=== PATIENT | female | born 1955 | race Caucasian/White ===

== ENCOUNTER 2016-05-19 05:50 | Day surgery (SDC) | payer OTHER ==
[2016-05-19] VITALS (9 sets, daily range): BP systolic 118–140; BP diastolic 63–76; PULSE 73–86; RESP 14–22; O2SAT 75–98
[~2016-05-19] VITALS: Ht 175.3 cm; Wt 68.5 kg
[~2016-05-19 05:50] MED LIST: AMT25T PO; BIOT1CAP3 PO; CALC-78 PO; CARISPRODOL PO; DICL100G8 TP; ESOM40CA41 PO; ESZO2TAB38 PO; Lactated Ringer's 1,000 ML IV SCH; MELO7.5O PO; METH5TAB3 PO; MULT-1018 PO; NITR50CA4 PO; PRD5T PO; PREG100C PO; PROZ20 PO; ROB500 PO; SPIR50TA2 PO; TRAM-14 PO
[2016-05-19] MEDS ORDERED: Propofol 10,000 mCg/mL 20 mL Inj ONE (05:51)
[2016-05-19] MEDS ORDERED: Ondansetron 2 mg/mL 2 mL Inj ONE (05:51)
[2016-05-19] MEDS ORDERED: fentaNYL-PF 50 mCg/mL 2 mL Inj ONE (05:51)
[2016-05-19] MEDS ORDERED: Lidocaine PF 1% 30 mL Inj ONE (05:51)
[2016-05-19] MEDS ORDERED: Dexamethasone 4 mg/mL Inj ONE (05:51)
--- NOTE | 2016-05-19 07:17 | PCM.HPANE ---
Patient Data Date of Service: May 19, 2016 Surgeon Admitting Provider: Attending Provider:Destiny Brothers MD Primary Care Physician:Ignacio Pierre Other Provider:Nicole Stark Anesthesia Reason for Visit Right Sural Nerve Neuropathy Ht/WT & BMI Height (Feet): 5 Height (Inches): 9.00 Weight (Kilograms): 68.538 Body Mass Index 22.00 Allergies Coded Allergies: vancomycin (Verified Allergy, Severe, FACIAL SWELLING, RASH, 05/14/16) morphine (Verified Adverse Reaction, Severe, ITCHING, 05/14/16) Past Anesthesia History Anesthesia History: Denies:: Anesthesia Reactions, Malignant Hyperthermia Diabetes History Hx Diabetes?: No MRSA MRSA: No Medications Home Meds Incl Beta Petty: Yes Date Beta Petty Taken: May 18, 2016 Time Beta Petty Taken: 20:00 Reported Medications Diclofenac Gel (Voltaren Gel)100 Gm Tube1 Applic TP QID PRN PRN #1 TUBE 1% 05/14/16 Tramadol (Ultram)50 Mg Ycxwad17 Mg PO Q6H PRN Pain Ref 0 05/14/16 Spironolactone 50 Mg Qmagvg27 Mg PO BID #30 TABLET Ref 0 05/14/16 Fluoxetine (Prozac)20 Mg Riwwvpu07 Mg PO DAILY Ref 0 05/14/16 Prednisone (PredniSONE)5 Mg Tab5 Mg PO DAILY Ref 0 05/14/16 Esomeprazole Magnesium (Nexium)40 Mg Capsule.dr40-80 Mg PO DAILY Ref 0 05/14/16 Multivitamin (Multi Vitamin Daily)1 Each Tablet1 Each PO DAILY 30 Days Ref 0 05/14/16 Methocarbamol 500 Mg Bbhlya128 Mg PO TID 05/14/16 Methadone 5 Mg Tablet7.5 Mg PO BID 05/14/16 Meloxicam 7.5 Mg/5 Ml Oral.susp15 Mg PO DAILY 30 Days 05/14/16 Nitrofurantoin Macrocrystal (Macrodantin)50 Mg Wrtauje34 Mg PO DAILY Ref 0 05/14/16 Pregabalin (Lyrica)100 Mg Brbwnjf884 Mg PO TID 30 Days Ref 0 05/14/16 Eszopiclone (Lunesta)2 Mg Tablet2 Mg PO HS PRN For Sleep 05/14/16 [Carisprodol] No Conflict Xqckt760 Mg PO TID 3/31/17 Calcium Carbonate/Vitamin D3 (Calcium 500 + Vit D Caplet)1 Each Tablet1 Each PO BID 05/14/16 Biotin 1 Mg Capsule1 Mg PO DAILY 05/14/16 Amitriptyline 25 Mg Lyp54-14 Mg PO HS Ref 0 05/14/16 History History of ENT Problems?: Yes HEENT History: Positive for:: TMJ Hx of Heart Problems?: Yes Cardiovascular History: Denies:: Heart Murmur Hypertension Other Cardiac History: C/OF BRUISING EASILY Hx of Respiratory Problem?: No Respiratory History: Denies:: Use of C-PAP Machine Hx Neurologic Problems?: Yes Neurological History: Positive for:: Headaches Other Neurological Pertinent: RT SURAL NERVE NEUROPATHY=CURRENT PROBLEM HX MILAN-DANIEL VIRUS Hx of GI Problems?: Yes Gastrointestinal History: Positive for:: Gastroesphageal Reflux Other GI Pertinent History: HX IBS Hx of Problems?: Yes Genitourinary History: Positive for:: Urinary Tract Infection (HX CYSTOCELE, INTERSTITIAL CYSTITIS) Female Hx: Denies:: Currently (endo metrial ablation 93) Skin History: Denies:: History Skin Disorders? Pressure Ulcers Hx Musculoskeletal Problems?: Yes Musculoskeletal History: Positive for:: Fibromyalgia (FOLLOWED BY DR. HARDEN/ [facility]) Osteoarthritis Denies:: Back Injury (C/OF NECK PAIN) Hx of Psycho/Social Problems?: Yes Psycho Social History: Positive for:: Anxiety Hx Surgeries?: Yes (BLADDER SUSPENSION) Hx Any Other Health Problems?: Yes Other History: Denies:: Cancer Endocrine Disease (C/OF COLD INTOLERANCE) Hospitalization Thyroid Disease History Blood Transfusions: Denies:: Blood Transfusions Hx Diabetes: No Hx Alcohol Use: NoHave You Smoked inLast 12 mo: No Stop/Bang S-Snoring: Do You Snore Loudly: No T-Tired: feel tired, fatigued: Yes O-Obsered: Observed not breath: No P-Blood Pressure: treated: No B- Body Mass Index > 35 kg/m2: No A- Age over 50: Yes N- Neck Large Circumference: No G- Gender Male: No VIOLETA Total Score: 2 VIOELTA Risk Assessment: Low Risk, <3 Yes Risk Assessment Category Category 1A: Patient has history of documented sleep apnea, and HAS NOT received any narcotic, sedative or anesthesia administration during this stay. Category 1B: Patient has history of documented sleep apnea, and HAS received any narcotic , sedative or anesthesia administration during this stay Category 2: Patient has SUSPECTED Obstructive Sleep Apnea, and HAS received any narcotic , sedative or anesthesia administration during this stay. Category 3: Patient has SUSPECTED Obstructive Sleep Apnea and HAS NOT received narcotic, sedative or anesthesia administration during this stay. Category 4: Outpatient in Procedural Areas with known sleep apnea or who screen positive for High Risk via the STOP/BANG questionnaire. Exam Exam Vital Signs Vital Signs Date Time Temp Pulse Resp B/P Pulse Ox O2 Delivery O2 Flow Rate FiO2 05/19/16 06:29 36.3 78 14 118/72 98 Room Air General Appearance: Alert, Oriented X3, Cooperative, No Acute Distress HEENT/AIRWAY: MP 1 Lungs: Normal Air Movement Heart: Exam Unremarkable Plan Impression Patient chart reviewed, patient interviewed and anesthestic plan with risks, benefits, and alternatives discussed, and informed consent obtained. ASA Physical Status: ASA2 Mod Systemic Disease Anesthetic Plan: GA Bene/Risks/Altern/Consents: Yes HP Complete Prior to Induction: Yes Nitish Hensley MD May 19, 2016 07:03
[2016-05-19] MEDS ORDERED: Bupivacaine-MPF 0.25% 30 mL Inj INFILTRATE ONE (07:29)
[2016-05-19] MEDS ORDERED: Lactated Ringer's 500 ML IV PRN (07:48)
[2016-05-19] MEDS ORDERED: Lactated Ringer's 1,000 ML IV SCH (07:48)
[2016-05-19] MEDS ORDERED: Ondansetron 2 mg/mL 2 mL Inj IVPUSH PRN (07:50)
[2016-05-19] MEDS ORDERED: Atropine 0.4 mg/mL Inj IVPUSH PRN (07:50)
[2016-05-19] MEDS ORDERED: MetoCLOpramide 5 mg/mL 2 mL Inj IVPUSH PRN (07:50)
[2016-05-19] MEDS ORDERED: Labetalol 5 mg/mL 4 mL Inj IV PRN (07:50)
[2016-05-19] MEDS ORDERED: Dexamethasone 4 mg/mL Inj IVPUSH PRN (07:50)
[2016-05-19] MEDS ORDERED: EPHEDrine Sulfate 50 mg/mL Inj IVPUSH PRN (07:50)
[2016-05-19] MEDS ORDERED: Phenylephrine 10,000 mCg/mL Inj IVPUSH PRN (07:50)
[2016-05-19] MEDS ORDERED: HYDROmorphone 1 mg/mL Inj IVPUSH PRN (07:50)
[2016-05-19] MEDS ORDERED: fentaNYL-PF 50 mCg/mL 2 mL Inj IVPUSH PRN (07:50)
--- NOTE | 2016-05-19 08:40 | PCM.ANEP1 ---
Post Anesthesia Phase 1 PACU Phase 1 Assessment Date of Service: May 19, 2016 Vital Signs Vital Signs Date Time Temp Pulse Resp B/P Pulse Ox O2 Delivery O2 Flow Rate FiO2 05/19/16 06:29 36.3 78 14 118/72 98 Room Air Anesthetic Administered: GA Level of Alertness: Sleepy, easy to arouse GRANT's with Equal Strength: Yes Pain: No Nausea or Vomiting: No Oxygen Delivery: Nasal Cannula Lungs: Normal Air Movement Nitish Hensley MD May 19, 2016 08:40
[2016-05-19] MEDS ORDERED: oxyCODONE-Acetamin 5-325 mg Tablet PO PRN (09:00)
--- NOTE | 2016-05-19 09:12 | PCM.ANEP2 ---
Post Anesthesia Evaluation ASA/CMS Post Anesthesia Date of Service: May 19, 2016 VS in Patient's Normal Range?: Yes Resp Stable; Airway Patent?: Yes CV Function & Hydration Stable: Yes Mental Status Recovered?: Yes Pain control Satisfactory?: Yes N/V Control Satisfactory?: Yes Nitish Hensley MD May 19, 2016 09:12
--- NOTE | 2016-05-19 16:34 | OP ---
[address] [address] OPERATIVE REPORT PATIENT: JUSTIN MACIEL : 1955 MR#: [id number] ADMIT: 05/19/2016 JOB ID: [id number] DATE OF SURGERY: 05/19/2016 PREOPERATIVE DIAGNOSIS(ES): Idiopathic neuropathy. POSTOPERATIVE DIAGNOSIS(ES): Idiopathic neuropathy. PROCEDURE PERFORMED: Left sural nerve biopsy. SURGEON: Destiny Brothers M.D. STOCK PREPARATION OPERATOR: Mickey Rodriguez M.D. HISTORY OF PRESENT ILLNESS: This is a 61-year-old woman with multiple neurologic symptoms, including fluctuating and migrating numbness, burning pain, weakness and fatigue at multiple levels. She underwent EMG which was abnormal, and showed no response in the bilateral sural sensory nerves. Therefore, sural nerve biopsy was requested by her neurologist. FINDINGS: The left sural nerve was resected between the left lateral malleolus and Achilles tendon for a length of 5 cm. DESCRIPTION OF PROCEDURE: The patient was brought to the operating room and placed in the supine position. General anesthesia was induced. A warming blanket was placed. A bump was placed so she was in modified right lateral decubitus. The operative field was prepped and draped in a sterile fashion. A pause was performed to confirm the correct patient, procedure, site and side. The mid point between the left lateral malleolus and Achilles tendon was identified and a vertical incision was made in the skin at this point. Ultimately the incision was extended for a length of 5 cm. Subcutaneous tissues were dissected with electrocautery. The underlying fascia was divided. The small saphenous vein was identified and found to be crossing over the left sural nerve. The nerve was dissected free and a small silk suture was used as a ligature for retraction. A 5 cm length of it was dissected free. The small saphenous vein did not need to be divided, although several tiny branches of it were cauterized. Once a 5 cm length of the nerve had been dissected, it was cut with scissors proximally and distally and removed from the field. It was placed on a tongue blade and secured at both ends with silk which was wrapped both around the nerve and the tongue blade with avoidance of excessive compression on the nerve itself, to avoid artifact. A single 3-0 Vicryl stitch was then placed in the subcutaneous tissues to reapproximate them. A running 4-0 Vicryl stitch was used to close the skin. 0.25% Marcaine plain was infused into the subcutaneous tissues both before and after the procedure for analgesia. A sterile dressing was placed. The patient tolerated the procedure well and was taken to the postoperative care unit in good condition. SPECIMENS: Left sural nerve, 5 cm. COMPLICATIONS: None. ESTIMATED BLOOD LOSS: 1 mL. MTDD
== END 2016-05-19 23:59 | disposition home or self-care (01) ==
LOC: SAS 05:50
PROVIDERS: ATTEND Surgery
DX: G57.91 Unspecified mononeuropathy of right lower limb (principal); M79.7 Fibromyalgia; G43.909 Migraine, unspecified, not intractable, without status migrainosus; G60.9 Hereditary and idiopathic neuropathy, unspecified
CPT/HCPCS: 64795; J1100; J2250; J2405; J3010; J7120